=== PATIENT | female | born 1985 | race African-American/Black ===

== ENCOUNTER 2021-06-28 13:51 | Emergency (ER) | payer MEDICAID ==
[~2021-06-28] VITALS: Ht 170.2 cm; Wt 54.0 kg
[2021-06-28 18:53] LABS: BASOPHILS % 0.5 % (0.0-2.0); EOSINOPHILS % 1.2 % (0.0-5.0); HEMATOCRIT. 39.1 % (36.0-48.0); HEMOGLOBIN. 13.3 g/dL (12.0-16.0); LYMPHOCYTES % 17.7 % (20.0-50.0); MEAN CORPUSCULAR HEMOGLOBIN 30.7 pg (28.0-32.0); MEAN CORPUSCULAR VOLUME 90.2 fL (81.0-99.0); MEAN PLATELET VOLUME 8.3 fl (7.4-10.4); MONOCYTES % 14.2 % (2.0-8.0); NEUTROPHILS % 66.4 % (40.0-76.0); PLATELET 257 x1000/uL (130-400); RED BLOOD CELL COUNT 4.34 mill/uL (4.2-5.4); RED CELL DISTRIBUTION WIDTH 13.2 % (11.6-14.6)
[2021-06-28 19:01] LABS: CHLORIDE 107 mEq/L (98-107)
[2021-06-28 19:16] LABS: HCG SCREEN NEGATIVE
[2021-06-28] MEDS ORDERED: MORPHINE SULFATE 4 MG/ML CPJ (NOT FOR IM USE) IV STA (20:43)
[2021-06-28] MEDS ORDERED: METOCLOPRAMIDE HCL 10MG/2ML VIAL IV STA (20:43)
[2021-06-28] MEDS ORDERED: KCL 10MEQ/50ML PREMIX 50 ML IV ONE (20:45)
[2021-06-28] MEDS ORDERED: SODIUM CHLORIDE 0.9% 1,000 ML IV ONE (20:45)
[2021-06-28 22:10] VITALS: BP 118/74
== END 2021-06-28 23:40 | disposition home or self-care (01) ==
LOC: ER 14:07
DX: R10.13 Epigastric pain (principal); E87.6 Hypokalemia; F99 Mental disorder, not otherwise specified
CPT/HCPCS: 36415; 76700; 80053; 83690; 84703; 85025; 93005; 99285; J2270; J2765; J7030; J3480